=== PATIENT | female | born 1985 | race African-American/Black ===

== ENCOUNTER 2021-07-12 17:46 | Emergency (ER) | payer BC ==
[~2021-07-12] VITALS: Ht 160 cm; Wt 86.2 kg
[2021-07-12] MEDS ORDERED: MACROBID 100 M100 MG PO (20:25)
== END 2021-07-12 20:37 | disposition home or self-care (01) ==
LOC: ER 17:46
DX: N30.00 Acute cystitis without hematuria (principal); N39.0 Urinary tract infection, site not specified